=== PATIENT | female | born 1935 | race Caucasian/White ===

== ENCOUNTER 2019-11-29 14:19 | Outpatient (CLI) | payer MEDICARE, OTHER ==
[~2019-11-29 14:19] MED LIST: AMIO200T42 PO; ASPI-496 PO; CARV12.543 PO; CHOL2000 PO; CRAN1TAB6 PO; FENO160T PO; GLIP5TAB10 PO; HYDR-3240 PO; HYDR12.517 PO; LACT1CAP4 PO; MULT-208 PO; PRAV40TA PO; RIVA20TA PO; SPIR50TA4 PO; VALS160T3 PO
== END 2019-11-29 23:59 | disposition home or self-care (01) ==
LOC: CFH 14:19
PROVIDERS: ATTEND Family Medicine
DX: R10.9 Unspecified abdominal pain (principal)
CPT/HCPCS: 76700

== ENCOUNTER → 2019-12-06 | Outpatient (CLI) | payer MEDICARE, OTHER | END | disposition home or self-care (01) | LOC: RAD 08:59 → EDSTATUS 09:00 | PROVIDERS: ATTEND Family Medicine | DX: M47.816 Spondylosis without myelopathy or radiculopathy, lumbar region (principal); K86.2 Cyst of pancreas; K76.89 Other specified diseases of liver; R10.9 Unspecified abdominal pain | CPT/HCPCS: 74181 ==